=== PATIENT | male | born 1995 | race African-American/Black ===

== ENCOUNTER 2018-08-29 02:49 | Emergency (ER) | payer OTHER ==
[~2018-08-29] VITALS: Ht 185.4 cm; Wt 97.5 kg
[2018-08-29 02:55] VITALS: BP 137/80
== END 2018-08-29 04:33 | disposition home or self-care (01) ==
LOC: ER 02:50
DX: S05.11XA Contusion of eyeball and orbital tissues, right eye, initial encounter (principal); H11.31 Conjunctival hemorrhage, right eye; Y08.89XA Assault by other specified means, initial encounter; Y93.89 Activity, other specified; Y92.89 Other specified places as the place of occurrence of the external cause; Y99.8 Other external cause status
CPT/HCPCS: A6403